=== PATIENT | female | born 1985 ===

== ENCOUNTER 2017-01-15 13:23 | Emergency (ER) | payer OTHER ==
[2017-01-15 13:23] VITALS: BMI 30.2
[2017-01-15 13:50] VITALS: O2SAT 100
[2017-01-15] MEDS ORDERED: Oxycodone/Acetaminophen 5/325 mg Tab PO STA (14:23)
[2017-01-15] MEDS ORDERED: Oxycodone/Acetaminophen 5/325 mg Tab ONE (14:32)
[2017-01-15 14:43] LABS: RBC URINE 18 /hpf (0-3); URINE BACTERIA RARE (<OCC); URINE BILIRUBIN NEGATIVE (NEGATIVE); URINE BLOOD 1+ (NEGATIVE); URINE COLOR Yellow (YELLOW); URINE GLUCOSE (UA) NORMAL (Normal); URINE KETONE NEGATIVE (NEGATIVE); URINE LEUKOCYTE ESTERASE 1+ Leu/uL (Negative); URINE PROTEIN NEGATIVE (NEGATIVE); URINE UROBILINOGEN NORMAL mg/dL (0.2-1.0); WBC URINE 3 /hpf (0-5)
--- NOTE | 2017-01-15 14:48 | C.PDOC ---
History Of Present Illness A 31 year old female presents to the emergency room with complaints of left sided lower back pain since yesterday. Patient has a history of Sciatica, which normally radiates down her legs. Patient reports taking Tramadol and Motrin today without relief. Patient admits to doing laundry and cleaning yesterday, which is what she believes initiated the pain. Patient denies any dysuria, frequency, hematuria, urinary or bowel incontinence, abdominal pain, numbness, weakness, any sensory changes, or any other complaints. Time Seen by Provider: 01/15/17 13:54 Chief Complaint (Nursing): Back Pain History Per: Patient History/Exam Limitations: no limitations Onset/Duration Of Symptoms: Days (1) Current Symptoms Are (Timing): Still Present Quality Of Discomfort: "Pain" Severity: Moderate Previous Symptoms: Other (History of Sciatica) Associated Symptoms: denies: Incontinence, New Weakness, New Numbness Exacerbating Factor(s): Nothing Recent travel outside of the [place]: No Past Medical History Reviewed: Historical Data, Nursing Documentation, Vital Signs Vital Signs: Last Vital Signs Temp 97.9 F 01/15/17 15:41 Pulse 71 01/15/17 15:41 Resp 18 01/15/17 15:41 BP 108/65 01/15/17 15:41 Pulse Ox 100 01/15/17 15:41 - Medical History PMH: Anxiety, Depression, Gall Bladder Disease, Hyperthyroidism Denies: Chronic Kidney Disease Surgical History: Cholecystectomy Family History: States: Unknown Family Hx - Social History Hx Alcohol Use: No Hx Substance Use: No - Immunization History Hx Tetanus Toxoid Vaccination: No Hx Influenza Vaccination: No Hx Pneumococcal Vaccination: No Review Of Systems Except As Marked, All Systems Reviewed And Found Negative. Constitutional: Negative for: Fever, Chills Gastrointestinal: Negative for: Nausea, Vomiting, Abdominal Pain, Diarrhea Genitourinary: Negative for: Frequency, Incontinence, Hematuria Musculoskeletal: Positive for: Hand Pain (Left sided lower back pain) Skin: Negative for: Rash Neurological: Negative for: Weakness, Numbness Physical Exam - Physical Exam Appears: Well, Non-toxic Skin: Normal Color, Warm, Dry, No Rash Head: Atraumatic, Normacephalic Eye(s): bilateral: Normal Inspection, EOMI Nose: Normal, No Tenderness Oral Mucosa: Moist Neck: Normal ROM, No Midline Cervical Tenderness, No Paracervical Tenderness, Supple Chest: Symmetrical, No Deformity, No Tenderness Cardiovascular: Rhythm Regular, No Edema Respiratory: Normal Breath Sounds, No Rales, No Rhonchi, No Wheezing Gastrointestinal/Abdominal: Soft, No Tenderness, No Guarding, No Rebound Back: No CVA Tenderness, No Vertebral Tenderness, Paraspinal Tenderness (Left sided paralumbar tenderness) Extremity: Normal ROM, No Tenderness, No Pedal Edema, No Swelling Neurological/Psych: Oriented x3, Normal Speech, Normal Cognition, Normal Motor, Normal Sensation Gait: Steady ED Course And Treatment O2 Sat by Pulse Oximetry: 100 - Other Rad L/S XR X-Ray: Interpreted by Me, Viewed By Me Interpretation: No fx or dislocation Progress Note: Patient was given Perocent and Flexeril. On reassessment, patient is resting comfortably, with improvement of back pain. Patient remains afebrile, with no bony tenderness, extremity numbness or weakness, or abdominal pain. Patient is ambulatory in the emergency departmen. Patient was advised to follow up with Ortho in 1-2 days. Disposition - Disposition Disposition: HOME/ ROUTINE Disposition Time: 15:24 Condition: STABLE Additional Instructions: Follow up with primary medical doctor in 1-3 days without fail for further evaluation. Take medications as prescribed. Return to the emergency department at any time if symptoms persist or worsen. Prescriptions: Cyclobenzaprine [Cyclobenzaprine HCl] 10 mg PO TID PRN #20 tab PRN Reason: Muscle Spasm Etodolac [Lodine] 400 mg PO TID PRN #20 tablet PRN Reason: Pain, Moderate (4-7) Instructions: Muscle Strain (ED) - Clinical Impression Clinical Impression: Low back pain - Scribe Statement The provider has reviewed the documentation as recorded by the Oziel Guevara Provider Scribe Attestation: All medical record entries made by the Oziel were at my direction and personally dictated by me. I have reviewed the chart and agree that the record accurately reflects my personal performance of the history, physical exam, medical decision making, and the department course for this patient. I have also personally directed, reviewed, and agree with the discharge instructions and disposition.
[2017-01-15 15:42] VITALS: BP 108/65; PULSE 71; RESP 18; TEMP 97.9
--- NOTE | 2017-01-15 16:18 | RAD ---
Lumbar spine three views History: Back pain. Comparison: None available. 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 Surgical clips in the right upper abdomen and pelvis. Intrauterine device in place. Moderate fecal retention in the colon. Spinal alignment maintained. 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 Negative acute. If pain persists, consider MRI.
== END 2017-01-15 15:41 | disposition home or self-care (01) ==
LOC: C.ER 13:23
DX: M54.5 Low back pain (principal)

== ENCOUNTER 2017-01-23 20:44 | Emergency (ER) | payer OTHER ==
[2017-01-23 20:45] VITALS: BMI 30.2
[2017-01-23 21:20] VITALS: O2SAT 98
[2017-01-23 22:32] LABS: EOS # 0.2 K/uL (0.0-0.7); LYMPH # 1.6 K/uL (1.0-4.3); NRBC % 0.1 % (0.0-2.0); RED CELL DISTRIBUTION WIDTH 13.3 % (11.5-14.5); WHITE BLOOD COUNT 7.8 K/uL (4.8-10.8)
[2017-01-23 22:37] LABS: RBC URINE 8 /hpf (0-3); TRANSITIONAL EPITHIAL < 1 /hpf (0-3); URINE BACTERIA RARE (<OCC); URINE BILIRUBIN NEGATIVE (NEGATIVE); URINE BLOOD 1+ (NEGATIVE); URINE COLOR Yellow (YELLOW); URINE GLUCOSE (UA) NORMAL (Normal); URINE KETONE TRACE mg/dL (NEGATIVE); URINE LEUKOCYTE ESTERASE NEG Leu/uL (Negative); URINE PROTEIN NEGATIVE (NEGATIVE); URINE UROBILINOGEN NORMAL mg/dL (0.2-1.0); WBC URINE 2 /hpf (0-5)
[2017-01-23 22:51] LABS: CHLORIDE 96 mmol/L (98-107); POTASSIUM 3.5 mmol/L (3.6-5.2); SODIUM 132 mmol/L (132-148)
[2017-01-23 22:54] LABS: ALB/GLOB RATIO 1.3 (1.0-2.1); ALKALINE PHOSPHATASE 157 U/L (38-126); ALT/SGPT 483 U/L (9-52); AST/SGOT 136 U/L (14-36); BILIRUBIN,TOTAL 0.9 mg/dL (0.2-1.3); BLOOD UREA NITROGEN 11 mg/dL (7-17); CALCIUM 8.7 mg/dl (8.6-10.4); CARBON DIOXIDE 26 mmol/L (22-30); GFR AFRICAN-AMERICAN > 60; GLUCOSE,RANDOM 116 mg/dL (65-105)
[2017-01-23 22:57] LABS: BASO # 0.1 K/uL (0.0-0.2); BASO % 0.7 % (0.0-2.0); EOS % 2.8 % (0.0-4.0); HEMATOCRIT 39.8 % (34.0-47.0); LYMPH % 20.6 % (20.0-40.0); MEAN CELL VOLUME 84.9 fL (81.0-99.0); MEAN CORPUSCULAR HGB CONC 32.9 g/dL (33.0-37.0); MEAN PLATELET VOLUME 10.2 fL (7.2-11.7); MONO # 0.8 K/uL (0.0-0.8); MONO % 10.6 % (0.0-10.0)
[2017-01-23 23:38] LABS: T4 5.74 ug/dL (5.5-11.0); THYROID STIMULATING HORMONE 0.19 mIU/L (0.46-4.68)
[2017-01-23] MEDS ORDERED: Potassium Chloride 20 mEq ER Tab PO STA (23:58)
--- NOTE | 2017-01-24 00:09 | C.PDOC ---
Time Seen by Provider: 01/23/17 21:30 Chief Complaint (Nursing): Lower Extremity Problem/Injury History Per: Patient Onset/Duration Of Symptoms: Days (few), Gradual Current Symptoms Are (Timing): Worse Severity: Moderate Associated Symptoms: Ankle/Leg Swelling Additional History Per: Prior Records Past Medical History Reviewed: Historical Data, Nursing Documentation, Vital Signs Vital Signs: Last Vital Signs Temp 98.7 F 01/23/17 21:11 Pulse 85 01/23/17 21:11 Resp 16 01/23/17 21:11 BP 147/81 01/23/17 21:11 Pulse Ox 98 01/23/17 21:11 - Medical History PMH: Anxiety, Depression, Hyperthyroidism Surgical History: Cholecystectomy () Family History: States: Unknown Family Hx - Social History Hx Tobacco Use: No Hx Alcohol Use: No Hx Substance Use: No - Immunization History Hx Tetanus Toxoid Vaccination: No Hx Influenza Vaccination: No Hx Pneumococcal Vaccination: No Review Of Systems Except As Marked, All Systems Reviewed And Found Negative. Constitutional: Negative for: Fever, Weakness Cardiovascular: Negative for: Chest Pain Respiratory: Negative for: Shortness of Breath Gastrointestinal: Negative for: Vomiting, Abdominal Pain Genitourinary: Negative for: Dysuria Musculoskeletal: Negative for: Neck Pain Skin: Negative for: Rash Neurological: Negative for: Weakness, Numbness, Seizures, Altered Mental Status , Headache Physical Exam - Physical Exam Appears: Non-toxic, No Acute Distress Skin: Normal Color, Warm, Dry, No Rash Head: Atraumatic, Normacephalic Eye(s): bilateral: PERRL, EOMI Neck: Normal ROM, Supple Cardiovascular: Rhythm Regular Respiratory: Normal Breath Sounds, No Accessory Muscle Use Gastrointestinal/Abdominal: Soft, No Tenderness Back: No CVA Tenderness Extremity: Normal ROM, Pedal Edema, No Calf Tenderness Extremity: Bilateral: Normal Color And Temperature Pulses: Left Dorsalis Pedis: Normal, Right Dorsalis Pedis: Normal Neurological/Psych: Oriented x3, Normal Motor, Normal Sensation ED Course And Treatment - Laboratory Results Result Diagrams: 01/23/17 22:28 01/23/17 22:28 Interpretation Of Abnormal: Elevated transaminase levels. Urine POC: Negative O2 Sat by Pulse Oximetry: 98 Pulse Ox Interpretation: Normal Progress - Interventions Interventions:: Observation - Medications Administered Oral: Other (KCl) Intravenous: Diuretic - Data Reviewed Data Reviewed: Lab, Old records - Continuity of Care Discussed patient case with:: Patient, Family-HIPPA compliant, ED Nurse Disposition Counseled Patient/Family Regarding: Studies Performed, Diagnosis, Need For Followup, Rx Given - Disposition Disposition: HOME/ ROUTINE Disposition Time: 00:10 Condition: FAIR Additional Instructions: Follow up with a primary doctor for further evaluation and treatment. Return to the ER if you develop shortness of breath, redness, worsening of symptoms or if you have any other concerns. Prescriptions: hydroCHLOROthiazide [Microzide] 12.5 mg PO DAILY PRN #30 cap PRN Reason: Swelling Instructions: Leg Edema (ED) - Clinical Impression Clinical Impression: Pedal edema, High transaminase levels
[2017-01-24] MEDS ORDERED: Potassium Chloride 20 mEq ER Tab PO ONE (00:13)
[2017-01-24 00:25] VITALS: BP 126/75; PULSE 81; RESP 18; TEMP 97.8
== END 2017-01-24 00:24 | disposition home or self-care (01) ==
LOC: C.ER 20:44
DX: R60.0 Localized edema (principal); R74.0 Nonspecific elevation of levels of transaminase and lactic acid dehydrogenase [LDH]; E87.6 Hypokalemia
CPT/HCPCS: 80053; 81001; 83880; 84436; 84443; 84480; 84703; 85025; 96374; 99283; J1940

== ENCOUNTER 2017-03-01 23:09 | Inpatient (IN) | payer OTHER ==
[2017-03-01 23:09] VITALS: BMI 30.2
[2017-03-02 00:49] LABS: BASO # 0.1 K/uL (0.0-0.2); BASO % 0.7 % (0.0-2.0); EOS # 0.3 K/uL (0.0-0.7); EOS % 2.7 % (0.0-4.0); HEMATOCRIT 37.4 % (34.0-47.0); LYMPH # 2.3 K/uL (1.0-4.3); LYMPH % 24.6 % (20.0-40.0); MEAN CELL VOLUME 85.7 fL (81.0-99.0); MEAN CORPUSCULAR HGB CONC 32.7 g/dL (33.0-37.0); MEAN PLATELET VOLUME 9.3 fL (7.2-11.7); MONO # 0.9 K/uL (0.0-0.8); MONO % 9.3 % (0.0-10.0); RED CELL DISTRIBUTION WIDTH 13.8 % (11.5-14.5); WHITE BLOOD COUNT 9.4 K/uL (4.8-10.8)
[2017-03-02 01:02] LABS: CHLORIDE 98 mmol/L (98-107)
[2017-03-02 01:03] LABS: POTASSIUM 3.5 mmol/L (3.6-5.2); SODIUM 137 mmol/L (132-148)
[2017-03-02 01:05] LABS: RBC URINE 4 /hpf (0-3); URINE BILIRUBIN NEGATIVE (NEGATIVE); URINE BLOOD NEGATIVE (NEGATIVE); URINE COLOR Yellow (YELLOW); URINE GLUCOSE (UA) NORMAL (Normal); URINE KETONE NEGATIVE (NEGATIVE); URINE LEUKOCYTE ESTERASE NEG Leu/uL (Negative); URINE PROTEIN NEGATIVE (NEGATIVE); URINE UROBILINOGEN NORMAL mg/dL (0.2-1.0); WBC URINE 1 /hpf (0-5)
[2017-03-02 01:05] LABS: ALB/GLOB RATIO 1.3 (1.0-2.1); ALKALINE PHOSPHATASE 157 U/L (38-126); ALT/SGPT 348 U/L (9-52); AST/SGOT 315 U/L (14-36); BILIRUBIN,TOTAL 0.3 mg/dL (0.2-1.3); BLOOD UREA NITROGEN 15 mg/dL (7-17); CALCIUM 8.9 mg/dl (8.6-10.4); CARBON DIOXIDE 29 mmol/L (22-30); GFR AFRICAN-AMERICAN > 60; GLUCOSE,RANDOM 122 mg/dL (65-105); TOTAL PROTEIN 6.6 g/dL (6.3-8.3)
[2017-03-02 01:06] LABS: ALCOHOL SERUM < 10 mg/dl (0-10)
--- NOTE | 2017-03-02 01:11 | C.PDOC ---
History Of Present Illness A 31 y/o female who was discharge from detox 6 days ago with prescribed meds c/ o feeling depressed after taking the drugs. Pt now wants detox from the drugs prescribed. Pt denies suicidal or homicidal ideation, or any physical complaints. Pt subsequently verbalizing suicidal ideation. Time Seen by Provider: 03/01/17 23:33 Chief Complaint (Nursing): Substance Abuse History Per: Patient Onset/Duration Of Symptoms: Days Current Symptoms Are (Timing): Still Present Suicide/Self Injury Attempted (Context): None Modifying Factor(s): Other (Prescribed medication) Severity: Mild Associated Symptoms: denies: Suicidal Thoughts, Suicidal Plan Involuntary Hold By: None Recent travel outside of the [place]: No Additional History Per: Patient Past Medical History Reviewed: Historical Data, Nursing Documentation, Vital Signs Vital Signs: Last Vital Signs Temp 97.6 F 03/01/17 23:18 Pulse 94 H 03/01/17 23:18 Resp 17 03/01/17 23:18 BP 130/85 03/01/17 23:18 Pulse Ox 95 03/02/17 02:23 - Medical History PMH: Anxiety, Depression, Gall Bladder Disease, Hyperthyroidism Denies: Chronic Kidney Disease Surgical History: Cholecystectomy () Family History: States: Unknown Family Hx - Social History Hx Tobacco Use: No Hx Alcohol Use: Yes Hx Substance Use: Yes - Immunization History Hx Tetanus Toxoid Vaccination: No Hx Influenza Vaccination: No Hx Pneumococcal Vaccination: No Review Of Systems Except As Marked, All Systems Reviewed And Found Negative. Constitutional: Negative for: Fever, Chills Gastrointestinal: Negative for: Nausea, Vomiting, Abdominal Pain, Diarrhea Psych: Positive for: Depression. Negative for: Suicidal ideation, Other ( Homicidal ideation) Physical Exam - Physical Exam Appears: Non-toxic, No Acute Distress, Other (Speaking full sentences) Skin: Warm, Dry Head: Atraumatic, Normacephalic Eye(s): bilateral: Normal Inspection Chest: Symmetrical Cardiovascular: Rhythm Regular, No Murmur Respiratory: Normal Breath Sounds, No Accessory Muscle Use, No Rales, No Rhonchi , No Wheezing Gastrointestinal/Abdominal: Soft, No Tenderness Neurological/Psych: Oriented x3, Normal Speech, Normal Cognition, Other (No focal deficit) ED Course And Treatment - Laboratory Results Result Diagrams: 03/02/17 00:15 03/02/17 00:43 O2 Sat by Pulse Oximetry: 95 (RA) Pulse Ox Interpretation: Normal Medical Decision Making Medical Decision Making: Impression: A 31 y/o female wanting detox from prescribed drugs Plans: -Blood labs -UA -Reassess 03/02/2017 02:22 Pt is verbalizing suicidal ideation. Disposition Discussed With DrCharlotte: Lauren Addison - Disposition Referrals: Tanvi Hyde MD [Primary Care Provider] - Disposition: HOSPITALIZED Disposition Time: 04:36 Condition: STABLE - POA Present On Arrival: None - Clinical Impression Clinical Impression: Depressive disorder, Opioid abuse - Scribe Statement The provider has reviewed the documentation as recorded by the Scribe Remedios head All medical record entries made by the Scribe were at my direction and personally dictated by me. I have reviewed the chart and agree that the record accurately reflects my personal performance of the history, physical exam, medical decision making, and the department course for this patient. I have also personally directed, reviewed, and agree with the discharge instructions and disposition.
[2017-03-02 05:28] VITALS: O2SAT 99
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
[2017-03-02] MEDS: Benzocaine/Menthol (Cepacol) Lozenge MT PRN (21:17)
[2017-03-02] MEDS: QUEtiapine 50 mg XR Tab PO SCH (21:37)
--- NOTE | 2017-03-03 09:29 | PCM.PYCHPN ---
Psychiatric Progress Note - Psychiatric Progress Note Patient seen today, length of contact: 16 min Patient Chief Complaint: "I don't know why I am here" Problems Identified/Issues Discussed: The pt is seen, chart reviewed, case discussed with staff. The pt is compliant with medications and reports no side-effects. Symptoms are improving but slowly and she needs more time to stabilize. Insight is low, and reports marital problems After care discussed, support and psychoeducation given. Medication Change: No Medical Record Reviewed: Yes Mental Status Examination - Cognitive Function Orientation: Person, Place, Situation, Time Memory: Impaired Attention: Poor Concentration: Poor Association: Loose Fund of Knowledge: WNL - Mood Mood: Depressed, Anxious - Affect Affect: Constricted, Depressed - Speech Speech: Appropriate - Formal Thought Process Formal Thought Process: No Impairment - Suicidal Ideation Suicidal Ideation: No - Homicidal Ideation Homicidal Ideation: No Goal/Treatment Plan - Goal/Treatment Plan Need for Continued Stay: Discharge may exacerbated symptoms, Severe functional impairment Progress Toward Problem(s) and Goals/Treatment Plan: Continue medications Support and psychoeducation daily Attend groups and activities daily After care planning by ARINA Estimated Date of D/C: 03/08/17
[2017-03-03] MEDS: Benzocaine/Menthol (Cepacol) Lozenge MT PRN (13:56)
[2017-03-03] MEDS: QUEtiapine 50 mg XR Tab PO SCH (21:27)
[2017-03-04] MEDS ORDERED: Pneumococcal 23-Valent Vaccine IM ONE (10:00)
--- NOTE | 2017-03-04 20:38 | PCM.PYCHPN ---
Psychiatric Progress Note - Psychiatric Progress Note Patient seen today, length of contact: 17 min Patient Chief Complaint: "I am not OK" Problems Identified/Issues Discussed: The pt is seen, chart reviewed, case discussed with staff. Support given, CBT and RI used briefly No new symptoms reported, improving slowly and needs some more time No SEs from medications, risks discussed. Elavil decreased due to risks and also due to seroquel being increased. She agreed DYFS called by SW - see note. REportedly her advised her to sign out AMA (??). She did not. After care discussed Beta culture came negative Medication Change: Yes (seroquel 100) Medical Record Reviewed: Yes Mental Status Examination - Cognitive Function Orientation: Person, Place, Situation, Time Memory: Impaired Attention: Poor Concentration: Poor Association: Loose Fund of Knowledge: WNL - Mood Mood: Depressed, Anxious - Affect Affect: Constricted, Depressed - Speech Speech: Appropriate - Formal Thought Process Formal Thought Process: No Impairment - Suicidal Ideation Suicidal Ideation: No - Homicidal Ideation Homicidal Ideation: No Goal/Treatment Plan - Goal/Treatment Plan Need for Continued Stay: Discharge may exacerbated symptoms, Severe functional impairment Progress Toward Problem(s) and Goals/Treatment Plan: Continue medications Support and psychoeducation daily Attend groups and activities daily After care planning by ARINA Estimated Date of D/C: 03/08/17
[2017-03-04] MEDS: QUEtiapine 50 mg XR Tab PO SCH (21:29)
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
[2017-03-05] MEDS ORDERED: NALTREXONE 380 MG IM ONE (14:00)
[2017-03-05] MEDS: QUEtiapine 50 mg XR Tab PO SCH (21:27)
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
[2017-03-06] MEDS ORDERED: QUEtiapine 150 mg XR Tab PO SCH (22:00)
[2017-03-07 09:18] VITALS: BP 104/64; PULSE 89; RESP 20; TEMP 97.4
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
== END 2017-03-07 11:10 | disposition home or self-care (01) | DRG 885 ==
LOC: SUPCPDRO 23:09 → C.ER 23:09 → EEVIPCON 03-02 04:38 → C.5E 03-02 04:38
PROVIDERS: ADMIT Psychiatry & Neurology Psychiatry; ATTEND Psychiatry & Neurology Psychiatry
PROC: HZ2ZZZZ Detoxification Services for Substance Abuse Treatment (ICD-10-PCS; principal; 2017-03-02)
PROC: HZ52ZZZ Individual Psychotherapy for Substance Abuse Treatment, Cognitive-Behavioral (ICD-10-PCS; 2017-03-02)
PROC: HZ59ZZZ Individual Psychotherapy for Substance Abuse Treatment, Supportive (ICD-10-PCS; 2017-03-02)
PROC: HZ56ZZZ Individual Psychotherapy for Substance Abuse Treatment, Psychoeducation (ICD-10-PCS; 2017-03-02)
DX: F33.2 Major depressive disorder, recurrent severe without psychotic features (principal); R45.851 Suicidal ideations; F11.20 Opioid dependence, uncomplicated; F13.230 Sedative, hypnotic or anxiolytic dependence with withdrawal, uncomplicated; F41.9 Anxiety disorder, unspecified; E05.90 Thyrotoxicosis, unspecified without thyrotoxic crisis or storm; Z90.49 Acquired absence of other specified parts of digestive tract; E03.9 Hypothyroidism, unspecified

== ENCOUNTER 2017-04-10 16:40 | Emergency (ER) | payer OTHER ==
[2017-04-10 16:41] VITALS: BMI 30.2
[2017-04-10 16:59] VITALS: O2SAT 100
--- NOTE | 2017-04-10 17:26 | C.PDOC ---
History Of Present Illness 31 yr old female presents to the ER with complaints of facial contusion, jaw pain developed for the past 6 days. Patient states, 6 days ago she had syncopal episode, while in shower, states she "had stopped taking her Seroquil". Pt sts, " was taking shower when fell nausea, dizzy, everything went black and I passed out". Patient states when she woke up she found her face on the sink and since then developed some swelling over the chin and right lower facial area. Patient denies syncopal episodes since the initial episodes. Also denies fever, chills, denies worse headache of life, vision changes, focal deficits, neck pain, drooling, dysphagia, dyspnea, vertigo, trismus, chest pain, SOB, nausea, vomiting, deformity, weakness or numbness to B/L UEs and LEs. Ambulate to Ed for evaluation, not in any apparent distress. Time Seen by Provider: 04/10/17 17:02 Chief Complaint (Nursing): Dental Pain History Per: Patient History/Exam Limitations: no limitations Onset/Duration Of Symptoms: Days (6) Past Medical History Reviewed: Historical Data, Nursing Documentation, Vital Signs Vital Signs: Last Vital Signs Temp 98.2 F 04/10/17 18:30 Pulse 80 04/10/17 18:30 Resp 16 04/10/17 18:30 BP 122/85 04/10/17 18:30 Pulse Ox 100 04/10/17 18:30 - Medical History PMH: Anxiety, Depression, Gall Bladder Disease, Hyperthyroidism Surgical History: Cholecystectomy () - [facility] Procedures DETOXIFICATION SERVICES FOR SUBSTANCE ABUSE TREATMENT (03/02/17) INDIV PSYCHOTHERAPY FOR SUBSTANCE ABUSE TREATMENT, SUPPORT (03/02/17) INDIV PSYCHOTHERAPY FOR SUBSTANCE ABUSE, COGNITIV BEHAVIORAL (03/02/17) INDIV PSYCHOTHERAPY FOR SUBSTANCE ABUSE, PSYCHOEDUCATION (03/02/17) Family History: States: No Known Family Hx - Social History Hx Tobacco Use: No Hx Alcohol Use: No Hx Substance Use: Yes - Immunization History Hx Tetanus Toxoid Vaccination: No Hx Influenza Vaccination: No Hx Pneumococcal Vaccination: No Review Of Systems Except As Marked, All Systems Reviewed And Found Negative. Constitutional: Negative for: Fever Eyes: Negative for: Vision Change Cardiovascular: Negative for: Chest Pain Respiratory: Negative for: Shortness of Breath Gastrointestinal: Negative for: Nausea, Vomiting Neurological: Negative for: Weakness, Numbness, Headache, Dizziness Physical Exam - Physical Exam Appears: Well, Non-toxic, No Acute Distress Skin: Warm, Dry, No Rash Head: Atraumatic, Normacephalic, No Tenderness, No Swelling Eye(s): bilateral: Normal Inspection, PERRL, EOMI Ear(s): Bilateral: Normal Nose: No Deformity, No Tenderness Oral Mucosa: Moist Teeth: Other ((+) Trace eccyhmosis with milld edema over the submental area. Trace ecchymosis with mild edema to the right mandible angle. NO palpable defomrity.) Throat: Normal, No Erythema, No Exudate, No Drooling Neck: No Midline Cervical Tenderness, No Paracervical Tenderness, No Step Off Deformity, Supple Lymphatic: No Adenopathy Chest: Symmetrical, No Tenderness Cardiovascular: Rhythm Regular, No Murmur Respiratory: No Rales, No Rhonchi, No Stridor, No Wheezing Gastrointestinal/Abdominal: Soft, No Tenderness Back: No Vertebral Tenderness Extremity: Normal ROM, No Deformity, No Swelling Neurological/Psych: Oriented x3, Normal Speech, Normal Motor, Normal Sensation, Normal Reflexes ED Course And Treatment O2 Sat by Pulse Oximetry: 100 (RA ) Pulse Ox Interpretation: Normal - CT Scan/US CT - Head w/o Contrast Other Rad Studies (CT/US): Read By Radiologist, Radiology Report Reviewed CT/US Interpretation: Accession No. : [id number]. Patient Name / ID : RANDA BARAJAS / [id number]. Exam Date : 04/10/2017 17:36:43 ( Approved ). Study Comment : Sex / Age : F / 31Y. Creator : Keri Kaiser MD. Dictator : Keri Kaiser MD. Service Delivery Supervisor : Reinforcing Steel Worker : Keri Kaiser MD. Approver2 : Report Date : 04/10/2017 17:57:09. My Comment : . PROCEDURE: CT HEAD WITHOUT CONTRAST. HISTORY: injury, LOC. COMPARISON : None available. TECHNIQUE: Axial computed tomography images were obtained through the head/brain without intravenous contrast. Radiation dose: Total exam DLP = 901.40 MGy-cm. This CT exam was performed using one or more of the following dose reduction techniques: Automated exposure control, adjustment of the mA and/or kV according to patient size, and/or use of iterative reconstruction technique. FINDINGS: HEMORRHAGE: No intracranial hemorrhage. BRAIN: No mass effect or edema. No atrophy or chronic microvascular ischemic changes.Please note that MRI with diffusion imaging is more sensitive in the detection of acute ischemic event. VENTRICLES: No hydrocephalus. CALVARIUM: Unremarkable. PARANASAL SINUSES: Unremarkable as visualized. No significant inflammatory changes. MASTOID AIR CELLS: Unremarkable as visualized. No inflammatory changes. OTHER FINDINGS: None. IMPRESSION: No acute intracranial pathology identified. CT - Maxillofacial w/o Contrast Other Rad Studies (CT/US): Read By Radiologist, Radiology Report Reviewed CT/US Interpretation: CT maxillofacial bones without IV contrast. Indication: Injury. Comparison: none available. Technique: Axial computed tomography images were obtained of the maxillofacial bones without the use of intravenous contrast. Coronal and sagittal reformatted images were generated and reviewed. This CT exam was performed using 1 or more of the falling dose reduction techniques: Automated exposure control, adjustment of the MAA and/or kV according to patient size, and/or use of iterative reconstruction technique. Radiation dose: Total exam DLP = 824.35 mGy-cm. Findings: Streak artifact from dental hardware. The facial bones appear unremarkable without acute displaced fracture. Somewhat crescentic high density located against or within the right aspect of the palate measuring approximately 2.0 x 0.5 cm (series 3, image 64; series 602, image 117). Evidence of adjacent foci of air. Correlate clinically including direct visualization in order to assess for foreign body or blood products. The orbits appear unremarkable. The temporomandibular joints are located. The mastoid air cells appear clear. The paranasal sinuses appear unremarkable. The visualized brain appears unremarkable. Impression: Somewhat crescentic high density located against or within the right aspect of the palate measuring approximately 2.0 x 0.5 cm (series 3, image 64; series 602 , image 117). Evidence of adjacent foci of air. Correlate clinically including direct visualization in order to assess for foreign body or blood products. No acute displaced fracture. Progress Note: On re-evaluation, pt is afebrile, hemodynamicaly stable. Non- toxic. head: AT/NC. Neuorlogicaly intact. Imaging results review and discussed with ED attending. Pt was re-eavluation, no eviden of intra-oral injury or hematoma. Pt denies any injury to intraoral area in past. Pt advised and ref. to f/u with ENT for further eval, MRI, tx as need. return to ED if any worsenin or new changes. Medical Decision Making Medical Decision Making: PLAN: * CT - Head, Maxillofacial * Drug Screen * POC * Urinalysis Disposition Counseled Patient/Family Regarding: Studies Performed, Diagnosis, Need For Followup - Disposition Referrals: Jose Ríos MD [Staff Provider] - Disposition: HOME/ ROUTINE Disposition Time: 18:23 Condition: STABLE Additional Instructions: Follow up with ENT IN 2-3 days for re-evaluation. Consider MRI after CT results review. Return to ED if any worsening or new changes. Instructions: Head Injury (ED), Facial Contusion (ED) - Clinical Impression Clinical Impression: Head injury, Facial contusion, Syncope - PA / SOFTWARE PROJECT MANAGER / Resident Statement MD/DO has reviewed & agrees with the documentation as recorded. - Scribe Statement The provider has reviewed the documentation as recorded by the Scribe Vanessa Yoon All medical record entries made by the Scribe were at my direction and personally dictated by me. I have reviewed the chart and agree that the record accurately reflects my personal performance of the history, physical exam, medical decision making, and the department course for this patient. I have also personally directed, reviewed, and agree with the discharge instructions and disposition.
--- NOTE | 2017-04-10 17:58 | CT ---
PROCEDURE: CT HEAD WITHOUT CONTRAST. HISTORY: injury, LOC COMPARISON: None available. TECHNIQUE: Axial computed tomography images were obtained through the head/brain without intravenous contrast. Radiation dose: Total exam DLP = 901.40 MGy-cm. This CT exam was performed using one or more of the following dose reduction techniques: Automated exposure control, adjustment of the mA and/or kV according to patient size, and/or use of iterative reconstruction technique. FINDINGS: HEMORRHAGE: No intracranial hemorrhage. BRAIN: No mass effect or edema. No atrophy or chronic microvascular ischemic changes.Please note that MRI with diffusion imaging is more sensitive in the detection of acute ischemic event. VENTRICLES: No hydrocephalus. CALVARIUM: Unremarkable. PARANASAL SINUSES: Unremarkable as visualized. No significant inflammatory changes. MASTOID AIR CELLS: Unremarkable as visualized. No inflammatory changes. OTHER FINDINGS: None. IMPRESSION: No acute intracranial pathology identified.
--- NOTE | 2017-04-10 18:08 | CT ---
CT maxillofacial bones without IV contrast Indication: Injury Comparison: none available Technique: Axial computed tomography images were obtained of the maxillofacial bones without the use of intravenous contrast. Coronal and sagittal reformatted images were generated and reviewed. This CT exam was performed using 1 or more of the falling dose reduction techniques: Automated exposure control, adjustment of the MAA and/or kV according to patient size, and/or use of iterative reconstruction technique. Radiation dose: Total exam DLP = 824.35 mGy-cm. Findings: Streak artifact from dental hardware. The facial bones appear unremarkable without acute displaced fracture. Somewhat crescentic high density located against or within the right aspect of the palate measuring approximately 2.0 x 0.5 cm (series 3, image 64; series 602, image 117). Evidence of adjacent foci of air. Correlate clinically including direct visualization in order to assess for foreign body or blood products. The orbits appear unremarkable. The temporomandibular joints are located. The mastoid air cells appear clear. The paranasal sinuses appear unremarkable. The visualized brain appears unremarkable. Impression: Somewhat crescentic high density located against or within the right aspect of the palate measuring approximately 2.0 x 0.5 cm (series 3, image 64; series 602, image 117). Evidence of adjacent foci of air. Correlate clinically including direct visualization in order to assess for foreign body or blood products. No acute displaced fracture.
[2017-04-10 18:31] VITALS: BP 122/85; PULSE 80; RESP 16; TEMP 98.2
== END 2017-04-10 18:33 | disposition home or self-care (01) ==
LOC: MERGE 16:40 → C.ER 16:40
DX: S00.83XA Contusion of other part of head, initial encounter (principal); W18.30XA Fall on same level, unspecified, initial encounter; Y93.E1 Activity, personal bathing and showering; R55 Syncope and collapse

== ENCOUNTER 2017-06-22 09:33 | Emergency (ER) | payer OTHER ==
[2017-06-22 09:33] VITALS: BMI 30.2
[2017-06-22 09:41] VITALS: BP 133/83; PULSE 98; RESP 16; TEMP 98.6; O2SAT 100
--- NOTE | 2017-06-22 09:52 | C.PDOC ---
History Of Present Illness Arianna Garces is a 31 year old female, with a past medical history of depression , who presents to the emergency department complaining of right elbow discomfort onset 2 months ago. Patient describes the pain as vague and mild. He reports taking Naprosyn occasionally. He denies any trauma. 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 No further medical complaints. PMD: None provided. Time Seen by Provider: 06/22/17 09:48 Chief Complaint (Nursing): Upper Extremity Problem/Injury History Per: Patient History/Exam Limitations: no limitations Onset/Duration Of Symptoms: Days (2 months) Current Symptoms Are (Timing): Still Present Severity: Mild Past Medical History Reviewed: Historical Data, Nursing Documentation, Vital Signs Vital Signs: Last Vital Signs Temp 98.6 F 06/22/17 09:40 Pulse 98 H 06/22/17 09:40 Resp 16 06/22/17 09:40 BP 133/83 06/22/17 09:40 Pulse Ox 100 06/22/17 10:41 - Medical History PMH: Anxiety, Depression, Hyperthyroidism Denies: Diabetes, Gall Bladder Disease, Hepatitis, HIV, HTN, Chronic Kidney Disease, Seizures, Sexually Transmitted Disease Surgical History: Cholecystectomy () - [facility] Procedures DETOXIFICATION SERVICES FOR SUBSTANCE ABUSE TREATMENT (03/02/17) INDIV PSYCHOTHERAPY FOR SUBSTANCE ABUSE TREATMENT, SUPPORT (03/02/17) INDIV PSYCHOTHERAPY FOR SUBSTANCE ABUSE, COGNITIV BEHAVIORAL (03/02/17) INDIV PSYCHOTHERAPY FOR SUBSTANCE ABUSE, PSYCHOEDUCATION (03/02/17) Family History: States: Unknown Family Hx - Social History Hx Tobacco Use: No Hx Alcohol Use: No Hx Substance Use: Yes - Immunization History Hx Tetanus Toxoid Vaccination: No Hx Influenza Vaccination: No Hx Pneumococcal Vaccination: No Review Of Systems Except As Marked, All Systems Reviewed And Found Negative. Constitutional: Negative for: Other (trauma) Musculoskeletal: Positive for: Arm Pain (right elbow ) Physical Exam - Physical Exam Appears: Well, No Acute Distress Skin: Normal Color, Warm, Dry Head: Atraumatic Eye(s): bilateral: Normal Inspection, PERRL, EOMI Neck: Normal, Normal ROM, Supple Cardiovascular: Rhythm Regular, No Murmur Respiratory: Normal Breath Sounds Extremity: Normal ROM (Normal elbow ), No Tenderness Neurological/Psych: Oriented x3, Normal Speech, Normal Cognition, Normal Motor ( to right elbow ), Normal Sensation (to right elbow) ED Course And Treatment O2 Sat by Pulse Oximetry: 100 (RA) Pulse Ox Interpretation: Normal Medical Decision Making Medical Decision Making: occasional discomfort R elbow for 3 months, 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 minimize NSAIDS And max ice therapy PRN Disposition Doctor Will See Patient In The: Office Counseled Patient/Family Regarding: Studies Performed, Diagnosis - Disposition Referrals: [facility] [Outside] [facility] [Outside] Disposition: HOME/ ROUTINE Disposition Time: 09:52 Condition: GOOD Additional Instructions: ice packs 1/2 hour per hour, as needed minimize NSAIDS/Naproxyn for risks of stomach irritation Follow-up in our outpatient Family Practice Clinic, to consider outpatient MRI of elbow as needed. Instructions: Muscle Strain (ED) Forms: [facility] ([place]) - Clinical Impression Clinical Impression: Elbow pain, right - Scribe Statement Pete Greene Provider Attestation: All medical record entries made by the Siomaraibcarolynn were at my direction and personally dictated by me. I have reviewed the chart and agree that the record accurately reflects my personal performance of the history, physical exam, medical decision making, and the department course for this patient. I have also personally directed, reviewed, and agree with the discharge instructions and disposition.
== END 2017-06-22 10:14 | disposition home or self-care (01) ==
LOC: C.ER 09:33
DX: M25.521 Pain in right elbow (principal)

== ENCOUNTER 2017-12-06 21:42 | Emergency (ER) | payer BC, OTHER ==
[2017-12-06 21:42] VITALS: BMI 30.2
[2017-12-06 21:52] VITALS: RESP 16
[2017-12-06] MEDS ORDERED: Aluminum Hydroxide/Magnesium Hydroxide Susp (30 mL) PO STA (22:12)
--- NOTE | 2017-12-06 22:12 | C.PDOC ---
History Of Present Illness 32yo female, presents to ED with complaints of abdominal pain, intermittently present since 5pm today. She also reports associated nausea but denies any vomiting or diarrhea. Patient also states she had a "migraine headache" since 2 days ago and has been taking Excedrin for the pain. She also reports a sore throat but denies any fever, chills, cough, shortness of breath. No other complaints. Chief Complaint (Nursing): Abdominal Pain History Per: Patient History/Exam Limitations: no limitations Onset/Duration Of Symptoms: Days Current Symptoms Are (Timing): Still Present Location Of Pain/Discomfort: Epigastric Associated Symptoms: Nausea. denies: Fever, Chills, Vomiting, Diarrhea Past Medical History Reviewed: Historical Data, Nursing Documentation, Vital Signs Vital Signs: Last Vital Signs Temp 99.4 F 12/07/17 00:43 Pulse 82 12/07/17 00:43 Resp 16 12/07/17 00:43 BP 113/64 12/07/17 00:43 Pulse Ox 99 12/07/17 01:33 - Medical History PMH: Anxiety, Depression, Hyperthyroidism, Migraine Denies: Diabetes, Gall Bladder Disease, Hepatitis, HIV, HTN, Chronic Kidney Disease, Seizures, Sexually Transmitted Disease Surgical History: Cholecystectomy () - [facility] Procedures DETOXIFICATION SERVICES FOR SUBSTANCE ABUSE TREATMENT (03/02/17) INDIV PSYCHOTHERAPY FOR SUBSTANCE ABUSE TREATMENT, SUPPORT (03/02/17) INDIV PSYCHOTHERAPY FOR SUBSTANCE ABUSE, COGNITIV BEHAVIORAL (03/02/17) INDIV PSYCHOTHERAPY FOR SUBSTANCE ABUSE, PSYCHOEDUCATION (03/02/17) Family History: States: Unknown Family Hx - Social History Hx Tobacco Use: No Hx Alcohol Use: No Hx Substance Use: No - Immunization History Hx Tetanus Toxoid Vaccination: No Hx Influenza Vaccination: No Hx Pneumococcal Vaccination: No Review Of Systems Except As Marked, All Systems Reviewed And Found Negative. Constitutional: Negative for: Fever, Chills ENT: Positive for: Throat Pain Cardiovascular: Negative for: Chest Pain Respiratory: Negative for: Cough, Shortness of Breath Gastrointestinal: Positive for: Nausea, Abdominal Pain. Negative for: Vomiting , Diarrhea Neurological: Positive for: Headache Physical Exam - Physical Exam Appears: Non-toxic, No Acute Distress Skin: Normal Color, Warm, Dry Head: Atraumatic, Normacephalic Eye(s): bilateral: PERRL, EOMI Oral Mucosa: Moist Teeth: Normal Dentition Throat: Normal, No Erythema, No Exudate Neck: Normal ROM, Supple Lymphatic: No Adenopathy Chest: Symmetrical Cardiovascular: Rhythm Regular (tachycardic, rate of 108 during exam) Respiratory: Normal Breath Sounds, No Wheezing Gastrointestinal/Abdominal: Soft, Tenderness (mild epigastric tenderness), No Organomegaly, No Mass, No Rebound, No Hernia Back: No CVA Tenderness Extremity: Normal ROM Pulses: Left Dorsalis Pedis: Normal, Right Dorsalis Pedis: Normal Neurological/Psych: Oriented x3, Normal Speech, Normal Cognition ED Course And Treatment - Laboratory Results Result Diagrams: 12/06/17 22:27 12/06/17 22:27 Urine POC: Negative O2 Sat by Pulse Oximetry: 99 (RA) Pulse Ox Interpretation: Normal Progress Note: Abd CT neg for acute pathology Medical Decision Making Medical Decision Making: Impression: Abdominal discomfort Plan: -- IV fluids -- Labs -- Maalox 30ml PO -- Zofran 4mg IVP -- Lidocaine 15ml PO Time: 2301 Labs reviewed, patient with elevated white count. CT Abdomen/Pelvis with IV contrast ordered. Time: 0054 CT Abdomen and Pelvis FINDINGS: Lower thorax: Heart size is normal. Lung bases are clear ABDOMEN: Liver: unremarkable Gallbladder and bile ducts: Gallbladder is absent.There is prominence of the common duct. There is mild intrahepatic biliary ductal dilatation. Pancreas: unremarkable Spleen: unremarkable Adrenals: unremarkable Kidneys and ureters: unremarkable Stomach and bowel: Stomach is partially distended. Rotation is normal. Small bowel is mildly distended with fluid and air. There is no obstruction. Ileocecal region is unremarkable. Appendix and terminal ileum are unremarkable. Colon is incompletely distended which limits evaluation. Appendix: See stomach and bowel PELVIS: Bladder: unremarkable Reproductive: Uterus is in a flexed with an IUD. Adnexa are unremarkable. ABDOMEN and PELVIS: Intraperitoneal space: There is trace fluid in the pelvis. There is no free air Bones/joints: There is a small bone island at T10. Bony structures are otherwise unremarkable. Soft tissues: There is a small fat containing umbilical hernia. Vasculature: Vascular structures are unremarkable. Lymph nodes: There is shotty mesenteric adenopathy. IMPRESSION: Mild biliary ductal dilatation status post cholecystectomy; no acute solid visceral or bowel abnormality, no CT findings of appendicitis; IUD Time: 0100 Patient reports marked improvement of symptoms. CT findings negative, results discussed with patient. Stable for discharge home, advised to follow up with PCP in 2-3 days. Disposition - Disposition Referrals: [facility] [Outside] Disposition: HOSPITALIZED Disposition Time: :33 Condition: FAIR Prescriptions: Famotidine [Pepcid] 40 mg PO DAILY 14 Days #14 tablet Instructions: Acute Abdomen (Belly Pain) Forms: [facility] (Amharic) Print Language: ALGERIAN - Clinical Impression Clinical Impression: Abdominal pain - Scribe Statement The provider has reviewed the documentation as recorded by the Scribe (Bárbara Lindsey) Provider Attestation: All medical record entries made by the Scribe were at my direction and personally dictated by me. I have reviewed the chart and agree that the record accurately reflects my personal performance of the history, physical exam, medical decision making, and the department course for this patient. I have also personally directed, reviewed, and agree with the discharge instructions and disposition.
[2017-12-06] MEDS ORDERED: Sodium Chloride 0.9% 1,000 ML IV ONE (22:15)
[2017-12-06 22:16] LABS: SQUAMOUS EPITHIAL 1 /hpf (0-5); URINE BACTERIA RARE (<OCC); URINE BILIRUBIN NEGATIVE (NEGATIVE); URINE BLOOD 2+ (NEGATIVE); URINE CLARITY Hazy (Clear); URINE COLOR Yellow (YELLOW); URINE GLUCOSE (UA) NORMAL (Normal); URINE LEUKOCYTE ESTERASE NEG Leu/uL (Negative); URINE PROTEIN 1+ mg/dL (NEGATIVE); URINE UROBILINOGEN NORMAL mg/dL (0.2-1.0)
[2017-12-06 22:17] LABS: HCG,QUALITATIVE URINE NEGATIVE (NEGATIVE)
[2017-12-06] MEDS ORDERED: Sodium Chloride 0.9% 1,000 ML ONE (22:29)
[2017-12-06] MEDS ORDERED: Aluminum Hydroxide/Magnesium Hydroxide Susp (30 mL) ONE (22:29)
[2017-12-06 22:33] LABS: BASO # 0.1 K/uL (0.0-0.2); BASO % 0.3 % (0.0-2.0); EOS % 0.1 % (0.0-4.0); HEMOGLOBIN 13.8 g/dL (11.0-16.0); LYMPH # 1.6 K/uL (1.0-4.3); MEAN CORPUSCULAR HEMOGLOBIN 27.5 pg (27.0-31.0); MEAN CORPUSCULAR HGB CONC 33.2 g/dL (33.0-37.0); MEAN PLATELET VOLUME 9.8 fL (7.2-11.7); MONO # 0.9 K/uL (0.0-0.8); MONO % 5.3 % (0.0-10.0); NEUT # 13.8 K/uL (1.8-7.0); NEUT % 84.3 % (50.0-75.0); RBC 5.03 Mil/uL (3.80-5.20); RED CELL DISTRIBUTION WIDTH 13.4 % (11.5-14.5)
[2017-12-06 22:41] LABS: MEAN CELL VOLUME 82.8 fL (81.0-99.0); WHITE BLOOD COUNT 16.3 K/uL (4.8-10.8)
[2017-12-06 22:46] LABS: ALB/GLOB RATIO 1.2 (1.0-2.1); ALBUMIN 4.3 g/dL (3.5-5.0); ALT/SGPT 66 U/L (9-52); AST/SGOT 40 U/L (14-36); BLOOD UREA NITROGEN 11 mg/dL (7-17); CALCIUM 8.9 mg/dl (8.6-10.4); GFR AFRICAN-AMERICAN > 60; GFR NON-AFRICAN AMERICAN > 60; LIPASE 57 U/L (23-300)
[2017-12-06] MEDS ORDERED: Iodixanol 320 mg/ml 150 ml Bottle IV ONE (23:12)
[2017-12-07 00:44] VITALS: BP 113/64; PULSE 82; TEMP 99.4
--- NOTE | 2017-12-07 00:54 | CT ---
EXAM: CT Abdomen and Pelvis With Intravenous Contrast EXAM DATE/TIME: 12/06/2017 11:01 PM CLINICAL HISTORY: 32 years old, female; Pain; Abdominal pain; Prior surgery; Surgery type: Cholecystectomy; Patient HX: 11-16-16; Additional info: Abd pain TECHNIQUE: Axial computed tomography images of the abdomen and pelvis with intravenous contrast. All CT scans at this facility use one or more dose reduction techniques, viz.: automated exposure control; ma/kV adjustment per patient size (including targeted exams where dose is matched to indication; i.e. head); or iterative reconstruction technique. Coronal and sagittal reformatted images were created and reviewed. CONTRAST: 100 mL of [id number] administered intravenously. COMPARISON: CT - ABD PELVIS PO IV CONTRAST 2016-11-16 17:52 FINDINGS: Lower thorax: Heart size is normal. Lung bases are clear ABDOMEN: Liver: unremarkable Gallbladder and bile ducts: Gallbladder is absent.There is prominence of the common duct. There is mild intrahepatic biliary ductal dilatation. Pancreas: unremarkable Spleen: unremarkable Adrenals: unremarkable Kidneys and ureters: unremarkable Stomach and bowel: Stomach is partially distended. Rotation is normal. Small bowel is mildly distended with fluid and air. There is no obstruction. Ileocecal region is unremarkable. Appendix and terminal ileum are unremarkable. Colon is incompletely distended which limits evaluation. Appendix: See stomach and bowel PELVIS: Bladder: unremarkable Reproductive: Uterus is in a flexed with an IUD. Adnexa are unremarkable. ABDOMEN and PELVIS: Intraperitoneal space: There is trace fluid in the pelvis. There is no free air Bones/joints: There is a small bone island at T10. Bony structures are otherwise unremarkable. Soft tissues: There is a small fat containing umbilical hernia. Vasculature: Vascular structures are unremarkable. Lymph nodes: There is shotty mesenteric adenopathy. IMPRESSION: Mild biliary ductal dilatation status post cholecystectomy; no acute solid visceral or bowel abnormality, no CT findings of appendicitis; IUD Additional nonemergent findings as described above.
[2017-12-07 01:10] VITALS: O2SAT 99
== END 2017-12-07 01:23 | disposition home or self-care (01) ==
LOC: C.ER 21:42
DX: R10.13 Epigastric pain (principal)
CPT/HCPCS: 74177; 80053; 81001; 83690; 84703; 85025; 96361; 96374; 96375; 99285; J2405; J7040; Q9967

== ENCOUNTER 2017-12-19 15:36 | Emergency (ER) | payer BC, OTHER ==
[2017-12-19 15:37] VITALS: BMI 30.2
[2017-12-19 15:46] VITALS: O2SAT 99
[2017-12-19] MEDS ORDERED: Albuterol 0.083% Inhal Sol (2.5 mg/3 mL) UD INH STA (16:53)
[2017-12-19] MEDS ORDERED: Albuterol 0.083% Inhal Sol (2.5 mg/3 mL) UD ONE (17:27)
--- NOTE | 2017-12-19 18:00 | C.PDOC ---
History Of Present Illness 32 year old female presents to the ED c/o congestion, productive cough with yellow phlegm for the past 2 weeks. Patient reports using Mucinex with minimal improvement. Patient also reports having some chest discomfort with cough. Patient denies fever, Hx of DVT/PE, nausea, vomit, abdominal pain, recent travel , sick contacts. HPI: Influenza Time Seen by Provider: 12/19/17 16:43 Chief Complaint: Cough, Cold, Congestion History Per: Patient Exam Limitations: no limitations Have you had recent travel within the past 21 days to any of the following countries: [place], [place], [place] or [place]?: No Onset/Duration Of Symptoms: Days Symptoms include: cough, nasal congestion, chest pain. denies: fever Sick Contacts (Context): None Past Medical History Reviewed: Historical Data, Nursing Documentation, Vital Signs Vital Signs: Last Vital Signs Temp 97.9 F 12/19/17 15:41 Pulse 116 H 12/19/17 15:41 Resp 24 12/19/17 15:41 BP 122/75 12/19/17 15:41 Pulse Ox 99 12/19/17 15:41 - Medical History PMH: Anxiety, Depression, Hyperthyroidism, Migraine Denies: Diabetes, Gall Bladder Disease, Hepatitis, HIV, HTN, Chronic Kidney Disease, Seizures, Sexually Transmitted Disease Surgical History: Cholecystectomy () - [facility] Procedures DETOXIFICATION SERVICES FOR SUBSTANCE ABUSE TREATMENT (03/02/17) INDIV PSYCHOTHERAPY FOR SUBSTANCE ABUSE TREATMENT, SUPPORT (03/02/17) INDIV PSYCHOTHERAPY FOR SUBSTANCE ABUSE, COGNITIV BEHAVIORAL (03/02/17) INDIV PSYCHOTHERAPY FOR SUBSTANCE ABUSE, PSYCHOEDUCATION (03/02/17) Family History: States: Unknown Family Hx - Social History Hx Tobacco Use: No Hx Alcohol Use: No Hx Substance Use: No - Immunization History Hx Tetanus Toxoid Vaccination: No Hx Influenza Vaccination: No Hx Pneumococcal Vaccination: No Review Of Systems Constitutional: Negative for: Fever, Chills ENT: Positive for: Nose Congestion Cardiovascular: Positive for: Chest Pain Respiratory: Positive for: Cough Gastrointestinal: Negative for: Abdominal Pain Skin: Negative for: Rash Neurological: Negative for: Weakness, Numbness Physical Exam - Physical Exam Appears: Non-toxic, No Acute Distress Skin: Normal Color, Warm, Dry Head: Atraumatic, Normacephalic Eye(s): bilateral: Normal Inspection Ear(s): Bilateral: Normal Nose: No Discharge Oral Mucosa: Moist Throat: Normal, No Erythema, No Exudate Neck: Normal ROM, Supple Chest: Symmetrical Cardiovascular: Rhythm Regular, No Murmur Respiratory: No Rales, No Rhonchi, Wheezing (faint expiratory) Gastrointestinal/Abdominal: Soft, No Tenderness, No Guarding, No Rebound Extremity: Normal ROM, No Tenderness, No Swelling Neurological/Psych: Oriented x3 Gait: Steady Medical Decision Making Medical Decision Making: Assessment: bronchitis Plan: * EKG * CXR * Albuterol 2.5 mg INH * Zithromax 500 mg PO Patient's repeat pulse was 94, respiration rate was 14. Patient was advised to follow up with PMD in 1-2 days. - ECG ECG: Positive for: Interpreted By Me, Viewed By Me ECG Rhythm: Positive for: Sinus Tachycardia Interpretation Of ECG: Left posterior vetricular block Rate: 112 (BPM) O2 Sat by Pulse Oximetry: 99 (On RA) Pulse Ox Interpretation: Normal - Radiology X-Ray: Interpreted by Me, Viewed By Me X-Ray Interpretation: Mediastinum (increased) Disposition Counseled Patient/Family Regarding: Studies Performed, Diagnosis, Need For Followup, Rx Given - Disposition Referrals: at [facility] [Outside] Disposition: HOME/ ROUTINE Disposition Time: 17:58 Condition: STABLE Additional Instructions: follow up with your doctor or medical clinic in 2 days call to make an appointment take medications as prescribed return to hospital if symptoms worsens or progress Prescriptions: Albuterol HFA [Ventolin HFA 90 mcg/actuation (8 g)] 2 puff IH [id number] #1 puff Azithromycin [Zithromax] 250 mg PO DAILY #4 tab Benzonatate [Tessalon Perles] 100 mg PO BID PRN #14 tab PRN Reason: Cough Instructions: Acute Bronchitis Forms: General Discharge Instructions, [facility] (Dominican), Work Excuse - Clinical Impression Clinical Impression: Bronchitis - Scribe Statement The provider has reviewed the documentation as recorded by the Scribcarolynn Arthur All medical record entries made by the Scribe were at my direction and personally dictated by me. I have reviewed the chart and agree that the record accurately reflects my personal performance of the history, physical exam, medical decision making, and the department course for this patient. I have also personally directed, reviewed, and agree with the discharge instructions and disposition.
--- NOTE | 2017-12-19 18:03 | RAD ---
HISTORY: cough COMPARISON: Comparison made with chest radiograph 07/21/2015 TECHNIQUE: Chest PA and lateral FINDINGS: LUNGS: Suspect minor bibasilar atelectasis. PLEURA: No significant pleural effusion identified. No pneumothorax apparent. CARDIOVASCULAR: Normal. OSSEOUS STRUCTURES: No significant abnormalities. VISUALIZED UPPER ABDOMEN: Normal. OTHER FINDINGS: None. IMPRESSION: Suspect minor bibasilar atelectasis
[2017-12-19 18:14] VITALS: BP 122/76; RESP 20; TEMP 98.2
[2017-12-19 18:39] VITALS: PULSE 112
--- NOTE | 2017-12-21 07:52 | CARD ---
APPROVED REPORT EKG Measurement Heart [id number] CT 140P [id number] <Conclusion> Sinus tachycardia Left posterior fascicular block Abnormal ECG
== END 2017-12-19 18:26 | disposition home or self-care (01) ==
LOC: C.ER 15:36
DX: J40 Bronchitis, not specified as acute or chronic (principal)

== ENCOUNTER 2018-11-22 10:06 | Emergency (ER) | payer OTHER | END 2018-11-22 13:11 | disposition home or self-care (01) | LOC: C.ER 10:06 ==